=== PATIENT | male | born 1950 | race Caucasian/White ===

== ENCOUNTER → 2024-03-26 18:02 | Outpatient (REF) | payer OTHER, SELFPAY | LOC: CLAB 18:02 | PROVIDERS: ATTENDING PHYSICIAN Student in an Organized Health Care Education/Training Program | DX: L98.9 Disorder of the skin and subcutaneous tissue, unspecified (principal) | CPT/HCPCS: 88305 ==

== ENCOUNTER → 2025-03-22 13:52 | Outpatient (REF) | payer OTHER, SELFPAY | LOC: HWRCS 13:52 | PROVIDERS: ATTENDING PHYSICIAN Internal Medicine Cardiovascular Disease; FAMILY PHYSICIAN Student in an Organized Health Care Education/Training Program | DX: Z95.2 Presence of prosthetic heart valve (principal); R06.02 Shortness of breath | CPT/HCPCS: 93306 ==